=== PATIENT | male | born 1995 | race Caucasian/White ===

== ENCOUNTER 2021-07-29 14:54 | Emergency (ER) | payer OTHER, SELFPAY ==
--- NOTE | 2021-07-29 14:56 | ED.URI ---
HPI - URI/Sore Throat General Chief Complaint: Upper Respiratory Infection Stated Complaint: sore throat Time Seen by Provider: 07/29/21 14:56 Source: patient and RN notes reviewed History of Present Illness HPI Narrative: Patient is a 26-year-old male who presents the urgent care with complaints of sore throat. Patient denies of any other upper respiratory complaints. Denies of fever, chills, nausea or vomiting. Patient states he has been taking Tylenol for the pain. States that the pain is worse in the morning and tends to get better when he drinks chicken broth . Patient denies any ill contacts. No other acute complaints. No acute distress noted. Patient aware of the plan of care. Some parts of this dictation were generated by voice recognition software and may contain typographical and/or grammatical inaccuracies. Related Data Home Medications Medication Instructions Recorded Confirmed famotidine 40 mg PO DAILY 07/29/21 07/29/21 mesalamine 1.2 g PO QID 07/29/21 07/29/21 Allergies Allergy/AdvReac Type Severity Reaction Status Date / Time NSAIDS (Non-Steroidal AdvReac Other Verified 07/29/21 15:11 Anti-Inflamma Review of Systems Review of Systems: CONSTITUTIONAL: Denies fever, chills, or sweats. EYES: Denies visual changes, redness, or discharge. ENT: Denies rhinorrhea, congestion, or otalgia. Reports of sore throat CARDIOVASCULAR: Denies chest pain, palpitations, or edema. RESPIRATORY: Denies cough or dyspnea. GASTROINTESTINAL: Denies abdominal pain, nausea, vomiting, or diarrhea. GENITOURINARY: Denies dysuria or hematuria. SKIN: Denies rash or itching. MUSCULOSKELETAL: Denies back pain, joint pain, or myalgia. NEUROLOGIC: Denies headache, numbness, or weakness. All other systems reviewed are negative, except as documented in HPI. [facility] Family History Family History (Updated 07/05/20 @ 16:20 by Michael Reddy MD) Father Diabetes mellitus Grandparent Lung cancer Grandparent Diabetes mellitus Social History Social History (Updated 07/05/20 @ 15:55 by Linda Garces CMA) Smoking status: Never smoker Alcohol intake: current Substance use type: marijuana Gender identity (if verbalized by the patient): Male Comments At the time of my signature, I reviewed and agree with the nursing past medical, surgical, social, and family history. There is no relevant family history pertinent to the patient complaint. Exam Narrative: GENERAL: This is a well-nourished, well-developed patient, in no apparent distress. HEAD: normocephalic, atraumatic. EYES: PERRL. Sclera clear/white. Vision is grossly intact. EARS: External ears normal, auditory canals clear and without drainage, TMs normal without perforation. Hearing grossly intact. NOSE: External nose normal with no obvious nasal discharge, nares without redness, no rhinorrhea. THROAT: Mucous membranes moist; mild to moderately enlarged erythemic uvula (uvulitis) with moderate erythema noted posterior oropharynx with moderate postnasal drainage NECK: Neck supple CARDIOVASCULAR: Regular rate and rhythm without murmurs, gallops, or rubs. RESPIRATORY: Clear to auscultation. Breath sounds equal bilaterally. No wheezes, rales, or rhonchi. SKIN: warm, intact with no suspicious lesions or rash, good texture and turgor. NEURO: awake, alert, and oriented to person, place and time. There were no obvious focal neurologic abnormalities. EXTREMITIES: No clubbing, cyanosis, or edema. Course Course Level of Care: Express Care Visit Vital Signs Vital signs: Vital Signs Temperature 98.4 F 07/29/21 15:01 Pulse Rate 91 07/29/21 15:01 Respiratory Rate 16 07/29/21 15:01 Blood Pressure 138/74 07/29/21 15:01 Pulse Oximetry 100 07/29/21 15:01 Temperature 98.4 F 07/29/21 15:01 Pulse Rate 91 07/29/21 15:01 Respiratory Rate 16 07/29/21 15:01 Blood Pressure 138/74 07/29/21 15:01 Pulse Oximetry 100 07/29/21 15:01 Reviewed
[2021-07-29 15:01] VITALS: BP 138/74; PULSE 91; RESP 16; TEMP 36.9; O2SAT 100
== END 2021-07-29 15:34 | disposition home or self-care (01) ==
PROVIDERS: Emergency Provider Nurse Practitioner Family
DX: K12.2 Cellulitis and abscess of mouth (principal); J02.9 Acute pharyngitis, unspecified
CPT/HCPCS: 87081; 87880; 99213; G0463